=== PATIENT | male | born 1930 | race Caucasian/White ===

== ENCOUNTER → 2016-08-13 | Outpatient (CLI) | payer MEDICARE, BC ==
[~2016-08-13] MED LIST: ALDACTONE 25MG25 MG PO; AMIODARONE HCL200 MG PO; ASMANEX TW0.22 MG/A1 IH; ASPIRIN 32325 MG/TAB PO; ASPIRIN 81M81 MG/TA2 PO; B-121000 MCG SL; CALCIUM + D 6001 TA1 PO; CALCIUM 600600 M2 PO; CALTRATE-600 W600 MG PO; CARDIZEM CD120 MG PO; CENTRUM SILVER1 TA1 PO; CEPHALEXIN500 M1 PO; CLARITIN PO; CLOPIDOGREL PO; COQ10250 MG PO; COREG 3.123.125 MG/T PO; COREG12.5 MG PO; COUMADIN 22.5 MG/TAB PO; COUMADIN 5MG5 MG/TAB PO; DIGOXIN0.125 MG PO; ELIQUIS 5MG PO; FLECAINIDE PO; FLONASE NASAL S16 GM NS; GLUCOSAMINE PO; LIPITOR20 MG PO; LIVALO PO; LORTAB 5/500 501 TAB PO; MAGNESIUM250 M1 PO; NIASPAN500 MG PO; NORCO 325 MG-7.1 TAB PO; NORVASC2.5 MG PO; PLAVIX 75MG TAB75 MG PO; POTASSIUM GLUC550 MG PO; PRAVACHOL 20MG20 MG PO; PRAVASTATIN20 MG PO; PRILOSEC 20MG20 MG PO; PRINIVIL5 MG PO; RHINOCORT; SINGULAIR 110 MG/TAB PO; SINGULAIR10 MG PO; SYNTHROID0.1 MG/TAB PO; SYNTHROID0.112 MG/T PO; SYNTHROID0.125 MG/T PO; TRILIPIX45 MG PO; VITAMIN B121000 MC2 SL; VITAMIN C500 MG PO; VITAMIN D PO; VITAMIN D1000 IU PO; VITAMIN D31000 IU PO; ZANTAC 300300 MG PO
[2016-08-13 10:55] LABS: HEMATOCRIT 37.8 % (42.0-52.0); HEMOGLOBIN 12.7 g/dl (13.5-18.0); MEAN CELL VOLUME 89 fl (80.0-100.0); MEAN CORPUSCULAR HEMOGLOBIN 30 pg (27.0-31.0); MEAN CORPUSCULAR HGB CONC 34 g/dl (33.0-37.0); MEAN PLATELET VOLUME 9.3 fl (7.4-10.4); PLATELET COUNT 206 K/mm3 (130-400); RED BLOOD COUNT 4.25 M/mm3 (4.20-5.60); REDCELL DISTRIBUTION WIDTH-CV 12.7 % (11.5-14.5); WHITE BLOOD COUNT 7.3 K/mm3 (4.8-10.8)
[2016-08-13 11:06] LABS: CALCIUM 9.2 mg/dL (8.4-10.2); CREATININE, serum 1.45 mg/dL (0.66-1.25); POTASSIUM 4.7 mmol/L (3.4-5.0)
== END ==
LOC: COL.LAB 10:24
PROVIDERS: Internal Medicine Interventional Cardiology
DX: I70.213 Atherosclerosis of native arteries of extremities with intermittent claudication, bilateral legs (principal)

== ENCOUNTER → 2016-08-29 | Outpatient (CLI) | payer MEDICARE, BC ==
[2016-08-29 16:10] LABS: HEMATOCRIT 36.5 % (42.0-52.0); HEMOGLOBIN 12.5 g/dl (13.5-18.0); MEAN CELL VOLUME 89 fl (80.0-100.0); MEAN CORPUSCULAR HEMOGLOBIN 30 pg (27.0-31.0); MEAN CORPUSCULAR HGB CONC 34 g/dl (33.0-37.0); MEAN PLATELET VOLUME 9.3 fl (7.4-10.4); PLATELET COUNT 192 K/mm3 (130-400); RED BLOOD COUNT 4.11 M/mm3 (4.20-5.60); REDCELL DISTRIBUTION WIDTH-CV 12.6 % (11.5-14.5); WHITE BLOOD COUNT 8.3 K/mm3 (4.8-10.8)
[2016-08-29 16:23] LABS: CREATININE, serum 1.72 mg/dL (0.66-1.25); POTASSIUM 4.5 mmol/L (3.4-5.0)
== END ==
LOC: COL.RAD 11-15 09:30
PROVIDERS: Internal Medicine Interventional Cardiology
DX: I70.213 Atherosclerosis of native arteries of extremities with intermittent claudication, bilateral legs (principal)

== ENCOUNTER → 2016-09-19 | Outpatient (CLI) | payer MEDICARE, BC ==
[2016-09-19 16:03] LABS: MEAN CELL VOLUME 90 fl (80.0-100.0); MEAN CORPUSCULAR HGB CONC 34 g/dl (33.0-37.0); PLATELET COUNT 210 K/mm3 (130-400); RED BLOOD COUNT 3.83 M/mm3 (4.20-5.60); WHITE BLOOD COUNT 7.5 K/mm3 (4.8-10.8)
[2016-09-19 16:04] LABS: HEMATOCRIT 34.5 % (42.0-52.0); HEMOGLOBIN 11.7 g/dl (13.5-18.0); MEAN CORPUSCULAR HEMOGLOBIN 31 pg (27.0-31.0)
[2016-09-19 16:16] LABS: CALCIUM 8.8 mg/dL (8.4-10.2); CREATININE, serum 1.46 mg/dL (0.66-1.25); POTASSIUM 4.5 mmol/L (3.4-5.0)
== END ==
LOC: COL.LAB 15:23
PROVIDERS: Internal Medicine Interventional Cardiology
DX: I70.213 Atherosclerosis of native arteries of extremities with intermittent claudication, bilateral legs (principal)

== ENCOUNTER → 2016-10-15 | Outpatient (CLI) | payer MEDICARE, BC ==
[2016-10-15 17:56] LABS: CALCIUM 9.6 mg/dL (8.4-10.2); CREATININE, serum 1.46 mg/dL (0.66-1.25); POTASSIUM 4.7 mmol/L (3.4-5.0)
[2016-10-15 18:04] LABS: MEAN CELL VOLUME 89 fl (80.0-100.0); MEAN CORPUSCULAR HEMOGLOBIN 30 pg (27.0-31.0); MEAN CORPUSCULAR HGB CONC 34 g/dl (33.0-37.0); MEAN PLATELET VOLUME 9.7 fl (7.4-10.4); PLATELET COUNT 222 K/mm3 (130-400); RED BLOOD COUNT 3.97 M/mm3 (4.20-5.60); REDCELL DISTRIBUTION WIDTH-CV 13.1 % (11.5-14.5); WHITE BLOOD COUNT 7.4 K/mm3 (4.8-10.8)
[2016-10-15 18:06] LABS: HEMATOCRIT 35.3 % (42.0-52.0)
== END ==
LOC: COL.LAB 15:56
PROVIDERS: Internal Medicine Interventional Cardiology
DX: I70.213 Atherosclerosis of native arteries of extremities with intermittent claudication, bilateral legs (principal)

== ENCOUNTER → 2016-11-05 | Outpatient (CLI) | payer MEDICARE, BC ==
[2016-11-05 12:47] LABS: CALCIUM 9.5 mg/dL (8.4-10.2); CREATININE, serum 1.48 mg/dL (0.66-1.25); MAGNESIUM 1.9 mg/dL (1.6-2.3); POTASSIUM 4.7 mmol/L (3.4-5.0)
[2016-11-05 15:29] LABS: ADJUSTED CALCIUM 9.4 mg/dL (8.4-10.2); ALBUMIN 4.1 gm/dL (3.5-5.0); BILIRUBIN,TOTAL 0.7 mg/dL (0.0-1.0); TOTAL PROTEIN 7.5 gm/dL (6.4-8.2)
== END ==
LOC: COL.LAB 11:43
PROVIDERS: Internal Medicine Interventional Cardiology
DX: R25.2 Cramp and spasm (principal)

== ENCOUNTER 2017-02-18 23:57 | Inpatient (IN) | payer MEDICARE, BC ==
[~2017-02-18] VITALS: Ht 165.1 cm; Wt 69.5 kg
[~2017-02-18 23:57] MED LIST changes: -COREG 3.123.125 MG/T PO; -COREG12.5 MG PO; -ELIQUIS 5MG PO
[2017-02-19] MEDS ORDERED: COREG 3.123.125 MG/T PO (00:16)
[2017-02-19] MEDS ORDERED: PLAVIX 75MG TAB75 MG PO (00:16)
[2017-02-19 00:22] LABS: BASO % 0.4 % (0.0-2.0); EOS # 0.5 (0.0-0.7); EOS % 6.1 % (0-4.0); GRAN # 4.7 (1.4-6.5); LYMPH # 1.6 (1.2-3.4); LYMPH % 19.4 % (20.0-51.0); MEAN CELL VOLUME 88 fl (80.0-100.0); MEAN CORPUSCULAR HGB CONC 34 g/dl (33.0-37.0); MEAN PLATELET VOLUME 9.7 fl (7.4-10.4); MONO # 1.5 (0.1-0.6); MONO % 17.9 % (1.7-9.3); PLATELET COUNT 175 K/mm3 (130-400); REDCELL DISTRIBUTION WIDTH-CV 12.9 % (11.5-14.5); WHITE BLOOD COUNT 8.3 K/mm3 (4.8-10.8)
[2017-02-19] MEDS ORDERED: ZANTAC 300300 MG PO (00:22)
[2017-02-19 00:33] LABS: ANION GAP 11 mmol/L (7-16); BLOOD UREA NITROGEN 38 mg/dL (9-20); CALCIUM 8.9 mg/dL (8.4-10.2); CARBON DIOXIDE 23 mmol/L (22-30); CHLORIDE 94 mmol/L (98-107); GLUCOSE 121 mg/dL (74-106); POTASSIUM 4.1 mmol/L (3.4-5.0); SODIUM 127 mmol/L (137-145)
[2017-02-19 00:39] LABS: HEMATOCRIT 33.6 % (42.0-52.0); HEMOGLOBIN 11.5 g/dl (13.5-18.0); MEAN CORPUSCULAR HEMOGLOBIN 30 pg (27.0-31.0)
[2017-02-19 00:45] LABS: B-TYPE NATRIURETIC PEPTIDE 370 pg/mL (0-450)
[2017-02-19 00:48] LABS: TROPONIN-I < 0.012 ng/mL (0.000-0.034)
[2017-02-19 00:53] LABS: INR 1.2 (0.8-3.0); PROTHROMBIN TIME 13.2 SECONDS (9.7-12.8)
[2017-02-19 03:40] VITALS: BP 131/70; PULSE 60; TEMP 98.7
[2017-02-19 07:57] VITALS: BP 142/62; PULSE 62; TEMP 97.6
[2017-02-19 10:23] LABS: CALCIUM 8.5 mg/dL (8.4-10.2); CREATININE, serum 1.31 mg/dL (0.66-1.25); POTASSIUM 4.2 mmol/L (3.4-5.0)
[2017-02-19 11:36] VITALS: BP 117/56; PULSE 60; TEMP 98.4
[2017-02-19 16:18] VITALS: BP 125/63; PULSE 62; TEMP 98.2
[2017-02-19 20:35] VITALS: BP 129/64; PULSE 59; TEMP 98
[2017-02-20 00:30] VITALS: BP 132/54; PULSE 68; TEMP 97.8
[2017-02-20 04:27] VITALS: BP 128/55; PULSE 61; TEMP 98.2
[2017-02-20 08:59] VITALS: BP 179/64; PULSE 65; TEMP 97.8
[2017-02-20] MEDS ORDERED: COREG12.5 MG PO (09:12)
[2017-02-20] MEDS ORDERED: ELIQUIS 5MG PO (09:23)
== END 2017-02-20 11:30 | disposition home or self-care (01) | DRG 176 ==
LOC: COL.ER 23:57 → MEDICAL 02-19 02:17
PROVIDERS: Emergency Medicine; Internal Medicine
DX: I26.99 Other pulmonary embolism without acute cor pulmonale (principal); E87.1 Hypo-osmolality and hyponatremia; N17.9 Acute kidney failure, unspecified; E86.1 Hypovolemia; I10 Essential (primary) hypertension; I48.91 Unspecified atrial fibrillation; Z95.2 Presence of prosthetic heart valve; Z86.718 Personal history of other venous thrombosis and embolism; Z95.0 Presence of cardiac pacemaker; Z85.46 Personal history of malignant neoplasm of prostate
CPT/HCPCS: 99223-AI; J1650; J2270; J7030; Q9967

== ENCOUNTER 2017-03-30 11:13 | Observation (INO) | payer MEDICARE, BC ==
[~2017-03-30] VITALS: Ht 165.1 cm; Wt 65.9 kg
[~2017-03-30 11:13] MED LIST changes: +COREG 3.123.125 MG/T PO; +COREG12.5 MG PO; +ELIQUIS 5MG PO
[2017-03-30 11:56] LABS: BASO % 0.6 % (0.0-2.0); EOS # 0.5 (0.0-0.7); EOS % 6.9 % (0-4.0); GRAN # 4.5 (1.4-6.5); GRAN % 63.8 % (42.2-75.2); HEMATOCRIT 35.6 % (42.0-52.0); LYMPH % 14.3 % (20.0-51.0); MEAN CELL VOLUME 90 fl (80.0-100.0); MEAN CORPUSCULAR HEMOGLOBIN 30 pg (27.0-31.0); MEAN CORPUSCULAR HGB CONC 34 g/dl (33.0-37.0); MEAN PLATELET VOLUME 9.5 fl (7.4-10.4); MONO % 14.1 % (1.7-9.3); PLATELET COUNT 212 K/mm3 (130-400); RED BLOOD COUNT 3.97 M/mm3 (4.20-5.60); WHITE BLOOD COUNT 7.1 K/mm3 (4.8-10.8)
[2017-03-30 11:58] LABS: INR 1.5 (0.8-3.0); PROTHROMBIN TIME 16.4 SECONDS (9.7-12.8)
[2017-03-30 12:01] LABS: ADJUSTED CALCIUM 9.3 mg/dL (8.4-10.2); ALANINE AMINOTRANSFERASE 26 U/L (21-72); ALBUMIN 3.9 gm/dL (3.5-5.0); ALKALINE PHOSPHATASE 49 U/L (50-136); ANION GAP 6 mmol/L (7-16); BILIRUBIN,TOTAL 0.8 mg/dL (0.0-1.0); BLOOD UREA NITROGEN 37 mg/dL (9-20); CALCIUM 9.2 mg/dL (8.4-10.2); CARBON DIOXIDE 25 mmol/L (22-30); CHLORIDE 98 mmol/L (98-107); CREATINE KINASE 182 U/L (55-170); CREATININE, serum 1.49 mg/dL (0.66-1.25); GLUCOSE 75 mg/dL (74-106); PARTIAL THROMBOPLASTIN TIME 32.2 SECONDS (26.0-37.0); POTASSIUM 4.9 mmol/L (3.4-5.0); SODIUM 129 mmol/L (137-145); TOTAL PROTEIN 7.1 gm/dL (6.4-8.2)
[2017-03-30 12:13] LABS: B-TYPE NATRIURETIC PEPTIDE 282 pg/mL (0-450)
[2017-03-30 12:17] LABS: TROPONIN-I < 0.012 ng/mL (0.000-0.034)
[2017-03-30 17:23] VITALS: BP 146/63; PULSE 65; TEMP 97.5
[2017-03-30 19:51] VITALS: BP 124/63; PULSE 64; TEMP 97.8
[2017-03-30 23:58] VITALS: BP 106/43; PULSE 66; TEMP 98.1
[2017-03-31 02:32] VITALS: BP 110/62; PULSE 75; TEMP 98.3
[2017-03-31 07:54] VITALS: BP 124/60; PULSE 67; TEMP 98.2
== END 2017-03-31 11:00 | disposition home or self-care (01) ==
LOC: COL.ER 11:13 → MEDICAL 12:40
PROVIDERS: Emergency Medicine
DX: T67.0XXA Heatstroke and sunstroke, initial encounter (principal); E86.0 Dehydration; X30.XXXA Exposure to excessive natural heat, initial encounter; Y92.008 Other place in unspecified non-institutional (private) residence as the place of occurrence of the external cause; Z86.718 Personal history of other venous thrombosis and embolism; Z79.01 Long term (current) use of anticoagulants; Z86.711 Personal history of pulmonary embolism; Z95.2 Presence of prosthetic heart valve; Z45.018 Encounter for adjustment and management of other part of cardiac pacemaker; I73.9 Peripheral vascular disease, unspecified; Z95.820 Peripheral vascular angioplasty status with implants and grafts
CPT/HCPCS: G0378; J7030

== ENCOUNTER → 2017-06-27 | Outpatient (CLI) | payer MEDICARE, BC | LOC: COL.RAD 09:37 | DX: R10.11 Right upper quadrant pain (principal); R00.2 Palpitations ==

== ENCOUNTER → 2017-08-15 | Outpatient (CLI) | payer MEDICARE, BC ==
[2017-08-15 16:48] LABS: HEMOGLOBIN 12.6 g/dl (13.5-18.0); MEAN CELL VOLUME 88 fl (80.0-100.0); MEAN CORPUSCULAR HEMOGLOBIN 30 pg (27.0-31.0); MEAN CORPUSCULAR HGB CONC 34 g/dl (33.0-37.0); MEAN PLATELET VOLUME 9.3 fl (7.4-10.4); PLATELET COUNT 186 K/mm3 (130-400); RED BLOOD COUNT 4.18 M/mm3 (4.20-5.60); REDCELL DISTRIBUTION WIDTH-CV 12.3 % (11.5-14.5)
[2017-08-15 16:50] LABS: HEMATOCRIT 36.9 % (42.0-52.0)
[2017-08-15 16:58] LABS: CALCIUM 9.7 mg/dL (8.4-10.2); CREATININE, serum 1.69 mg/dL (0.66-1.25); MAGNESIUM 1.9 mg/dL (1.6-2.3); PHOSPHOROUS 4.9 mg/dL (2.5-4.5); POTASSIUM 4.4 mmol/L (3.4-5.0)
== END ==
LOC: COL.LAB 16:08
PROVIDERS: Nurse Practitioner Family
DX: I47.2 Ventricular tachycardia (principal); R00.2 Palpitations

== ENCOUNTER 2017-11-08 10:45 | Outpatient (RCR) | payer MEDICARE, BC | END 2017-11-12 08:59 | disposition home or self-care (01) | LOC: MKS.ESL.PT 10:45 | DX: R26.89 Other abnormalities of gait and mobility (principal) | CPT/HCPCS: G8978-GP; G8979-GP; G8980-GP ==